=== PATIENT | female | born 1950 | race Caucasian/White ===

== ENCOUNTER → 2016-06-06 | Outpatient (CLI) | payer OTHER ==
[~2016-06-06] MED LIST: CALCIUM 500 +1 EAC5 PO; CARDIZEM SR 60M60 MG PO; ELIQUIS2.5 MG PO; ELIQUIS5 MG PO; METFORMIN HCL500 MG PO; MOBIC15 MG PO; NEURONTIN600 MG PO; NORTRIPTYLINE H25 M3 PO; PRAVACHOL40 MG PO; PROPRANOLOL HC120 MG PO; PROTONIX40 M1 PO; VITAMIN B-121000 MC1 PO
--- NOTE | ~2016-06-06 | CARDNUC ---
[facility] [place] [address] CARDIAC NUCLEAR IMAGING REPORT Name: GILBERT ROSE Room #: REG CL [facility]#: [id number] Admission: 06/06/16 Attend Phys: Jose Lawson Discharge: Date of : 46 Date of Service: 06/06/16 1748 Report #: [id number] THIS REPORT FOR: //name// CC: Farooq Lawson DATE OF SERVICE: 06/06/2016 Vasodilator Gated SPECT Myocardial Perfusion Imaging: Regadenoson Referring physician: Farooq Muhammad MD. Referring park aide: Jose Lawson MD. Date of study: 06/06/2016. Indications for study: Tachycardia. Risk factors: Age, hyperlipidemia, hypertension, diabetes mellitus, and family history. Cardiac history: Atrial fibrillation. Cardiac medications: Pravastatin, Eliquis, diltiazem, and propranolol. Gender: Female. PROCEDURE: The patient was given 0.4 mg of intravenous regadenoson (Lexiscan) administered over approximately 20 seconds. The patient did not complain of chest discomfort during the infusion. At baseline, the blood pressure was 143/86 and the pulse was 80; at completion of the regadenoson infusion the blood pressure was 133/81 and the pulse was 101. At completion of the recovery phase, the blood pressure was 138/76 and the pulse was 87. The baseline electrocardiogram demonstrated normal sinus rhythm, poor R-wave progression, nonspecific ST-T wave changes. The EKG at completion of the administration of regadenoson demonstrated no significant changes. Rhythm disturbances included none. Gated-SPECT myocardial perfusion imaging was performed using a one-day imaging protocol and a technetium isotope technique. The 11.8 mCi of Tc-99m sestamibi was administered intravenously at rest; 35.7 mCi of Tc-99m sestamibi was administered intravenously within 10 seconds of the completion of the administration of regadenoson. Imaging was obtained in the supine position and when feasible, adjunctive stress imaging in the prone position was obtained. FINDINGS: The overall quality of the study was satisfactory. There was evidence of attenuation artifact. There was no evidence of abnormal extracardiac uptake of the radionuclide. [address] [address] CARDIAC NUCLEAR IMAGING REPORT Name: GILBERT ROSE KAREEM Room #: REG [facility]#: [id number] Admission: 06/06/16 Attend Phys: Jose Lawson Discharge: Date of : 46 Date of Service: 06/06/16 1748 Report #: [id number] The baseline imaging study demonstrated homogenous uptake of isotope except for a region of the lateral wall which appeared to be slightly photopenic. It appeared improved at rest, but there was overall greater counts in the rest images than the stress images. The ratio of counts appeared to be reversible even with this taken in to account. The imaging obtained following the administration of the vasodilator demonstrated as above. On gated analysis the left ventricle demonstrated normal contractility. The gated ejection fraction was 54%. The left ventricle was of normal size at rest and did not dilate with administration of the vasodilator. IMPRESSIONS: 1. CLINICAL RESPONSE: Adequate response to intravenous Lexiscan. 2. STRESS EKG RESPONSE: Inadequate heart rate response for an ECG diagnosis. 3. MYOCARDIAL PERFUSION STUDY: Scintigraphic evidence of a likely reversible lateral wall defect which is suggestive of ischemia. 4. FUNCTIONAL CAPACITY: Not assessed. CONCLUSIONS: Intermediate risk study. <ELECTRONICALLY SIGNED> By: Kranthi Vargas MD 06/06/162010 1748 1932 Kranthi Vargas MD /nt
== END ==
LOC: NUC 11:33
DX: R00.0 Tachycardia, unspecified (principal)

== ENCOUNTER → 2016-06-15 | Outpatient (CLI) | payer OTHER ==
[~2016-06-15] VITALS: Ht 162.6 cm; Wt 71.2 kg
--- NOTE | ~2016-06-15 | CATHLAB ---
[facility] [address] [place] [address] INVASIVE PROCEDURE REPORT Name: GILBERT ROSE Room #: REG CL [facility]#: [id number] Admission: 06/15/16 Attend Phys: Kranthi Umana Discharge: Date of : 46 Date of Service: 06/15/16 1142 Report #: [id number] THIS REPORT FOR: //name// CC: Farooq Vargas DATE OF SERVICE: 06/15/2016 INDICATIONS: A 65-year-old female patient with abnormal noninvasive evaluation and atrial fibrillation, new onset. PROCEDURES: 1. Left heart catheterization. 2. Selective left and right coronary angiography. 3. Measurement of left ventricular end-diastolic pressures. 4. Supervision of conscious sedation. ACUTE CARE ASSISTANT: Kranthi Vargas M.D. BRIEF DESCRIPTION OF PROCEDURE: After informed consent was obtained, the patient was brought to the cardiac catheterization laboratory in stable condition. The patient's right groin was prepped and draped in the usual sterile manner after which lidocaine was then instilled. Utilizing a modified Seldinger technique, the right femoral artery was then accessed. Under fluoroscopic visualization using selective coronary catheters, the right and left coronaries were opacified and visualized. The left ventriculogram was likewise imaged per standard protocol with EDP being measured. Subsequent to this, the sheath was removed, hemostasis achieved. The patient tolerated the procedure well. There were no complications. FINDINGS: 1. HEMODYNAMICS: a. Aortic pressure 163/76. b. Left ventricular end-diastolic pressures 24-26. 2. FLUOROSCOPY: Under fluoroscopic visualization, there was some mild calcific plaquing along the epicardial coronary arteries. No calcific plaquing on the valvular or intramyocardial structures of the heart. 3. ANGIOGRAPHY: This is a right coronary dominant system. a. Left main is of normal origin and caliber, bifurcates left anterior descending and left circumflex and is free of high-grade disease. b. Left anterior descending is a moderate-caliber type 3 vessel, courses in the anterior interventricular sulcus, giving rise to the diagonal and septal branches. It is free of significant high-grade lesions and is without significant luminal irregularities. c. Left circumflex is a moderate nondominant vessel free of high-grade disease. d. Right coronary artery is of normal origin and dominant vessel, which [facility] [address] [place] [address] INVASIVE PROCEDURE REPORT Name: GILBERT ROSE [id number] Admission: 06/15/16 Attend Phys: Kranthi Umana Discharge: Date of : 46 Date of Service: 06/15/16 1142 Report #: [id number] proceeds in the AV groove, giving rise to the RV marginal branch beyond the re-margin. It proceeds to the crux of the heart where posterior descending artery and posterior wall branch are noted. This is all free of high-grade disease and it is a zjhjdarh-yi-xfewo caliber vessel. IMPRESSION: 1. Essentially normal coronary arteries with minimal plaquing. 2. Abnormal hemodynamics with an elevated left ventricular end-diastolic pressure and systolic blood pressure. <ELECTRONICALLY SIGNED> By: Kranthi Vargas MD 06/15/16 1604 1142 1332 Kranthi Vargas MD /nt
[2016-06-15 07:44] VITALS: BP 143/87
== END | disposition home or self-care (01) ==
LOC: CATH 07:18
DX: I25.10 Atherosclerotic heart disease of native coronary artery without angina pectoris (principal); I48.91 Unspecified atrial fibrillation

== ENCOUNTER → 2016-10-24 | Outpatient (CLI) | payer OTHER ==
[~2016-10-24] VITALS: Ht 162.6 cm; Wt 68.9 kg
[~2016-10-24] MED LIST changes: +CALCIUM CARBO1250 MG PO; +FLECAINIDE ACET50 M1 PO; +KLOR-CON 1010 MEQ PO; +LASIX 20 MG TAB20 MG PO; +VITAMIN D3400 UNIT PO
[2016-10-24 09:44] VITALS: BP 115/74
[2016-10-24 11:15] VITALS: BP 115/74
== END | disposition home or self-care (01) ==
LOC: CATH 07:05
DX: I48.0 Paroxysmal atrial fibrillation (principal); I10 Essential (primary) hypertension; D64.9 Anemia, unspecified; I50.9 Heart failure, unspecified; K21.9 Gastro-esophageal reflux disease without esophagitis; E11.9 Type 2 diabetes mellitus without complications; M19.90 Unspecified osteoarthritis, unspecified site; E78.00 Pure hypercholesterolemia, unspecified; E78.5 Hyperlipidemia, unspecified; Z90.710 Acquired absence of both cervix and uterus; Z98.890 Other specified postprocedural states; Z85.3 Personal history of malignant neoplasm of breast; Z82.49 Family history of ischemic heart disease and other diseases of the circulatory system; Z88.8 Allergy status to other drugs, medicaments and biological substances; Z88.2 Allergy status to sulfonamides; Z79.899 Other long term (current) drug therapy

== ENCOUNTER → 2017-03-11 | Outpatient (CLI) | payer OTHER | LOC: RAD 09:37 | DX: K21.9 Gastro-esophageal reflux disease without esophagitis (principal); J38.5 Laryngeal spasm; H55.89 Other irregular eye movements; R13.19 Other dysphagia; R09.89 Other specified symptoms and signs involving the circulatory and respiratory systems; R05 Cough ==

== ENCOUNTER → 2017-04-16 | Outpatient (CLI) | payer OTHER ==
[~2017-04-16] VITALS: Ht 162.6 cm; Wt 68.5 kg
[~2017-04-16] MED LIST changes: +DILAUDID 2 MG TA2 MG PO
--- NOTE | ~2017-04-16 | S ---
[facility] [address] [place] [address] SURGICAL PATH RPT PROCEDURE Name: GILBERT ROSE Room #: REG [facility].#: [id number] Admission: 04/16/17 Date of : 46 Discharge: Report #: [id number] Path Case #: PATHOLOGY REPORT COLLECTION DATE: 04/16/2017 RECEIVED DATE: 04/16/2017 SUBMITTING PHYS: Dr. Jeremy Rivera OTHER PHYS: Dr. Farooq Muhammad ADDENDUM REPORT (Order Date: 04/19/2017 09:16) ADDENDUM COMMENT: This addendum is issued subsequent to review of well controlled GMS fungal special stain performed on block C1. There are no definite fungal elements identified. The originally rendered diagnosis remains unchanged. (IUV:pit; 04/19/2017) Professional services performed by [facility] at [facility] [address] [place] [address] Technical services performed by [facility] at [address] [place] [address], [address] [place] [address]. ELECTRONICALLY SIGNED BY: Cady Stern M.D. DATE/TIME:04/19/2017 12:19 SPECIMEN(S) RECEIVED: A.Bx esophageal distal B.Bx esophageal mid C.Bx esophageal upper * * * * * * * * * * * * FINAL DIAGNOSIS: A. Gastroesophageal mucosa, esophageal distal r/o Sanchez's, endoscopic biopsy: - Gastric cardia-type mucosa with moderate chronic inflammation. - Negative for intestinal metaplasia or dysplasia. - Squamous mucosa with mild esophagitis. B. Squamous mucosa, esophageal mid r/o Sanchez's, endoscopic biopsy: - Mild esophagitis. - Negative for intestinal metaplasia or dysplasia. C. Squamous mucosa, esophageal upper r/o Sanchez's, endoscopic biopsy: - Moderate acute esophagitis (please see comment). - Negative for intestinal metaplasia or dysplasia. (IUV:luis; 04/17/2017) [facility] [address] [place] [address] SURGICAL PATH RPT PROCEDURE Name: GILBERT ROSE Room #: REG [facility]#: [id number] Admission: 04/16/17 Date of : 46 Discharge: Report #: [id number] Path Case #: [id number] COMMENT: A GMS fungal special stain is ordered on block C1 due to the findings. The results will be reported in an addendum to follow. There are no viral inclusions identified on routine histologic examination. No additional stains are performed. (IUV:luis; 04/17/2017) PATHOLOGIST: Cday Stern M.D. REPORT ELECTRONICALLY SIGNED BY: Cady Stern M.D. DATE/TIME: 04/17/2017 13:00 * * * * * * * * * * * * GROSS PATHOLOGY: A. Received in formalin labeled "Gilbert Rose, BX, esophageal distal r/o Sanchez's," are 2 segments of pan soft tissue measuring 0.4 x 0.2 x 0.2 cm in aggregate dimension and measuring 0.2 cm each in maximum dimension. The specimen is submitted entirely in cassette A1. B. Received in formalin labeled "Gilbert Rose, KAREN esophageal mid r/o Sanchez's," are 3 segments of pan soft tissue measuring 0.9 x 0.5 x 0.2 cm in aggregate dimensions and ranging from 0.2 to 0.3 cm in maximum dimension. The specimen is submitted entirely in cassette B1. C. Received in formalin labeled "Gilbert Rose, BX esophageal upper r/o Sanchez's," are 2 segments of pan soft tissue measuring 1.0 x 0.4 x 0.2 cm in aggregate dimensions and measuring 0.5 cm each in maximum dimension. The specimen is submitted entirely in cassette C1. (TSD; 04/16/2017) CLINICAL HISTORY: Pre-OP DX: Reflux, dysphagia Post-OP DX: Dysphagia, esophagitis INITIAL CPT CODE(S): A; 76716 B; 18151 C; 95318, 45767 Professional services performed by [facility] at [facility] [address] [place] [address] Technical services performed by [facility] at [address] [place] [address], [address] [address]. [facility] [place] [address] SURGICAL PATH RPT PROCEDURE Name: GILBERT ROSE [facility] [id number] Admission: 04/16/17 Date of : 46 Discharge: Report #: [id number] Path Case #: [id number] [address] PHONE: [phone] DIRECTOR: Sadi Reed M.D. * * * END OF REPORT * * *
== END | disposition home or self-care (01) ==
LOC: GI 06:42
DX: K22.10 Ulcer of esophagus without bleeding (principal); K44.9 Diaphragmatic hernia without obstruction or gangrene; T54.94XA Toxic effect of unspecified corrosive substance, undetermined, initial encounter; T28.6XXA Corrosion of esophagus, initial encounter; K21.9 Gastro-esophageal reflux disease without esophagitis; I10 Essential (primary) hypertension; E11.9 Type 2 diabetes mellitus without complications; E78.00 Pure hypercholesterolemia, unspecified; I48.91 Unspecified atrial fibrillation; Z79.899 Other long term (current) drug therapy; Z98.890 Other specified postprocedural states; Z90.710 Acquired absence of both cervix and uterus; Z98.41 Cataract extraction status, right eye; Z98.42 Cataract extraction status, left eye
CPT/HCPCS: 62110; 62900

== ENCOUNTER → 2017-07-31 | Outpatient (CLI) | payer OTHER | LOC: CAT 10:31 | DX: R91.1 Solitary pulmonary nodule (principal) ==

== ENCOUNTER → 2019-01-16 | Outpatient (CLI) | payer OTHER | LOC: CAT 09:48 | DX: R91.8 Other nonspecific abnormal finding of lung field (principal); D86.9 Sarcoidosis, unspecified; J98.11 Atelectasis; I50.9 Heart failure, unspecified; Z88.8 Allergy status to other drugs, medicaments and biological substances; Z88.2 Allergy status to sulfonamides; Z85.3 Personal history of malignant neoplasm of breast ==

== ENCOUNTER → 2020-01-18 | Outpatient (CLI) | payer OTHER | LOC: CAT 12:51 | PROVIDERS: ATTEND Internal Medicine Pulmonary Disease | DX: R91.8 Other nonspecific abnormal finding of lung field (principal); D86.9 Sarcoidosis, unspecified; I25.10 Atherosclerotic heart disease of native coronary artery without angina pectoris; N20.0 Calculus of kidney ==

== ENCOUNTER → 2020-03-23 | Outpatient (CLI) | payer OTHER | LOC: SJCVCIMAG 03-03 08:20 | PROVIDERS: ATTEND Internal Medicine Cardiovascular Disease | DX: I08.1 Rheumatic disorders of both mitral and tricuspid valves (principal); I48.0 Paroxysmal atrial fibrillation; R94.31 Abnormal electrocardiogram [ECG] [EKG]; I11.0 Hypertensive heart disease with heart failure; I50.9 Heart failure, unspecified; I44.0 Atrioventricular block, first degree; I42.9 Cardiomyopathy, unspecified; Z79.899 Other long term (current) drug therapy ==

== ENCOUNTER → 2020-03-28 | Outpatient (CLI) | payer OTHER | LOC: SJCVCIMAG 09:59 | PROVIDERS: ATTEND Internal Medicine Cardiovascular Disease | DX: I48.91 Unspecified atrial fibrillation (principal); I44.0 Atrioventricular block, first degree; R00.0 Tachycardia, unspecified; I49.3 Ventricular premature depolarization; E78.5 Hyperlipidemia, unspecified; E11.9 Type 2 diabetes mellitus without complications; I11.0 Hypertensive heart disease with heart failure; I50.9 Heart failure, unspecified; Z79.899 Other long term (current) drug therapy ==

== ENCOUNTER → 2020-04-11 | Outpatient (CLI) | payer OTHER | LOC: SJCVC 09:16 | PROVIDERS: ATTEND Internal Medicine Cardiovascular Disease | DX: I48.0 Paroxysmal atrial fibrillation (principal); K21.9 Gastro-esophageal reflux disease without esophagitis; E11.9 Type 2 diabetes mellitus without complications; I50.9 Heart failure, unspecified; Z79.899 Other long term (current) drug therapy ==

== ENCOUNTER → 2020-04-13 | Outpatient (CLI) | payer OTHER | LOC: SJCVC 15:04 | PROVIDERS: ATTEND Internal Medicine Infectious Disease | DX: R94.31 Abnormal electrocardiogram [ECG] [EKG] (principal); R00.0 Tachycardia, unspecified; D86.9 Sarcoidosis, unspecified; I48.0 Paroxysmal atrial fibrillation; I11.0 Hypertensive heart disease with heart failure; I50.23 Acute on chronic systolic (congestive) heart failure; I42.8 Other cardiomyopathies; E11.9 Type 2 diabetes mellitus without complications; E78.5 Hyperlipidemia, unspecified; K21.9 Gastro-esophageal reflux disease without esophagitis; Z79.899 Other long term (current) drug therapy ==

== ENCOUNTER → 2021-01-04 | Outpatient (CLI) | payer OTHER | LOC: SJCVCIMAG 08:14 | PROVIDERS: ATTEND Internal Medicine Cardiovascular Disease | DX: I37.8 Other nonrheumatic pulmonary valve disorders (principal); R94.31 Abnormal electrocardiogram [ECG] [EKG]; I48.0 Paroxysmal atrial fibrillation; I42.8 Other cardiomyopathies; D86.9 Sarcoidosis, unspecified; G90.9 Disorder of the autonomic nervous system, unspecified; E11.9 Type 2 diabetes mellitus without complications; E78.5 Hyperlipidemia, unspecified; I11.0 Hypertensive heart disease with heart failure; I50.30 Unspecified diastolic (congestive) heart failure; K21.9 Gastro-esophageal reflux disease without esophagitis; M19.90 Unspecified osteoarthritis, unspecified site; Z90.710 Acquired absence of both cervix and uterus; Z88.5 Allergy status to narcotic agent; Z88.2 Allergy status to sulfonamides; Z88.8 Allergy status to other drugs, medicaments and biological substances; Z79.84 Long term (current) use of oral hypoglycemic drugs; Z79.899 Other long term (current) drug therapy; Z85.3 Personal history of malignant neoplasm of breast; Z82.49 Family history of ischemic heart disease and other diseases of the circulatory system ==

== ENCOUNTER → 2021-07-12 | Outpatient (CLI) | payer OTHER | LOC: SJCVC 12:48 | PROVIDERS: ATTEND Internal Medicine Cardiovascular Disease | DX: R94.31 Abnormal electrocardiogram [ECG] [EKG] (principal); I48.0 Paroxysmal atrial fibrillation; I42.8 Other cardiomyopathies; E78.5 Hyperlipidemia, unspecified; I11.0 Hypertensive heart disease with heart failure; I50.9 Heart failure, unspecified; E11.9 Type 2 diabetes mellitus without complications; K21.9 Gastro-esophageal reflux disease without esophagitis; Z88.5 Allergy status to narcotic agent; Z88.2 Allergy status to sulfonamides; Z88.8 Allergy status to other drugs, medicaments and biological substances; Z79.84 Long term (current) use of oral hypoglycemic drugs; Z79.899 Other long term (current) drug therapy; Z95.818 Presence of other cardiac implants and grafts; Z82.49 Family history of ischemic heart disease and other diseases of the circulatory system ==